=== PATIENT | female | born 1940 | race African-American/Black ===

== ENCOUNTER 2019-05-29 11:39 | Emergency (ER) | payer OTHER ==
[2019-05-29 11:46] VITALS: BP 153/63; PULSE 79; TEMP 98.2; BMI 25.7
--- NOTE | 2019-05-29 13:49 | PDOC ---
History of Present Illness - General Chief Complaint: Psychiatric Stated Complaint: DEPRESSION Time Seen by Provider: 05/29/19 11:56 History Source: Patient, Family Exam Limitations: No Limitations Past History - Past Medical History Allergies/Adverse Reactions: Allergies Allergy/AdvReac Type Severity Reaction Status Date / Time No Known Allergies Allergy Verified 05/29/19 11:46 Home Medications: Ambulatory Orders Aspirin [ASA -] 81 mg PO DAILY 05/29/19 Dorzolamide HCl [Trusopt 2%] 1 drop OP TID 05/29/19 Iron Ps Complex/B12/Folic Acid [Poly-Iron 150 Forte Capsule] 1 cap PO DAILY 10/12 Isosorbide Mononitrate 10 mg PO DAILY 05/29/19 Losartan Potassium 50 mg PO DAILY 05/29/19 Metoprolol Tartrate 25 mg PO DAILY 05/29/19 Nifedipine ER [Procardia XL -] 30 mg PO DAILY 05/29/19 Simvastatin 40 mg PO DAILY 05/29/19 Cardiac Disorders: Yes (3 stents) COPD: No Diabetes: Yes HTN: Yes - Surgical History Cardiac Surgery: Yes (3 stents) - Psycho Social/Smoking Cessation Hx Smoking History: Never smoked Information on smoking cessation initiated: No Hx Alcohol Use: No Drug/Substance Use Hx: No *Physical Exam - Vital Signs Last Vital Signs Temp Pulse Resp BP Pulse Ox 98.2 F 79 18 153/63 98 05/29/19 11:42 05/29/19 11:42 05/29/19 11:42 05/29/19 11:42 05/29/19 11:42 - Physical Exam General Appearance: No: Apparent Distress Respiratory/Chest: positive: Lungs Clear, Normal Breath Sounds. negative: Respiratory Distress Cardiovascular: positive: Regular Rhythm, Regular Rate, S1, S2. negative: Murmur Gastrointestinal/Abdominal: positive: Normal Bowel Sounds, Soft. negative: Tender, Distended, Guarding, Rebound Extremity: positive: Other (LLE slightly larger appearing than RLE, no pitting edema, no calf tenderness, 2+ DP and PT pulses B/L, normal color of extremities) Integumentary: positive: Normal Color. negative: Erythema, Mottled, Cold, Ecchymosis, Bruising Neurologic: positive: Fully Oriented, Alert, Normal Mood/Affect ED Treatment Course - RADIOLOGY Radiology Studies Ordered: Category Date Time Status DUPLEX VASCUL US-1 LEG [US] Stat Ultrasound 05/29/19 12:11 Completed Medical Decision Making - Medical Decision Making 78 y/o F hx of depression, CAD s/p PCI x 3 years, HTN, DM presents with having anxiety attacks x 3 weeks. Saw her PCP 3 weeks ago and was prescribed Paxil but states has not been taking full dose as scared of getting addicted to medication. Mentions she is anxious about her health and worried she will pass away from a serious illness (patient's family member last year from cancer and patient worried maybe she might get cancer also). Her PCP referred her to [facility] where she was given long list of psychiatrists whom she can follow-up with. She went to [place] last week but they were unable to see her as told there were no appointments available. Patient has been unable to find a psychiatrist. She came to ER today because she thought we had a [facility]. She also endorses having bilateral leg pain for 1-2 years. She has been referred to a vascular doctor and is pending to see one regarding this. Denies fevers, shortness breath, chest pain, abdominal pain , nausea, vomiting, diarrhea, urinary symptoms, numbness, tingling, weakness of the extremities, visual/gait changes, S/H ideation. LLE US negative for DVT No suspicion for acute arterial occlusion based on exam Patient otherwise appears well without S/H ideation Advised to find psychiatrist through her insurance stable for dc 05/29/19 13:44 Discharge - Discharge Information Problems reviewed: Yes Clinical Impression/Diagnosis: Anxiety Condition: Stable Disposition: HOME - Admission No - Additional Discharge Information Prescription Drug Monitoring Program (I-STOP) results: I-STOP not reviewed - Follow up/Referral Referrals: Tawana Diaz MD [Staff Physician] - 2 Days - Patient Discharge Instructions Patient Printed Discharge Instructions: DI for Anxiety -- Adult Additional Instructions: Thank you for choosing [facility]. It was a pleasure taking care of you. Please take the full dose of the Paxil as it was prescribed Please follow-up with psychiatrist - you may find one by going though your insurance You were also referred to Dr. Diaz Return to the Emergency Department if your symptoms worsen or persist, you have thoughts of hurting yourself or others or other concerning symptoms. - Post Discharge Activity
== END 2019-05-29 14:22 | disposition home or self-care (01) ==
LOC: JER 11:39
DX: F41.9 Anxiety disorder, unspecified (principal); E11.9 Type 2 diabetes mellitus without complications; I10 Essential (primary) hypertension; I25.10 Atherosclerotic heart disease of native coronary artery without angina pectoris
CPT/HCPCS: 93971-TC; 99283-25

== ENCOUNTER 2021-10-30 15:08 | Emergency (ER) | payer OTHER ==
[2021-10-30] MEDS ORDERED: DIPHTH,PERTUSS(ACELL),TET 0.5 ML DISP.SYRIN IM ONE ×2 (15:44→15:51)
[2021-10-30] MEDS ORDERED: ACETAMINOPHEN 325 MG TABLET (FP) PO ONE (15:44)
[2021-10-30 15:48] VITALS: BMI 24.3
[2021-10-30] MEDS ORDERED: ACETAMINOPHEN 325 MG TABLET (FP) ONE (15:50)
[2021-10-30 18:29] VITALS: BP 129/57; PULSE 84
[2021-10-30 20:37] VITALS: TEMP 97.8
== END 2021-10-30 21:37 | disposition home or self-care (01) ==
LOC: JER 15:08
PROC: 3E0234Z Introduction of Serum, Toxoid and Vaccine into Muscle, Percutaneous Approach (ICD-10-PCS; principal; 2021-10-30)
DX: S00.511A Abrasion of lip, initial encounter (principal); M25.561 Pain in right knee; S20.212A Contusion of left front wall of thorax, initial encounter; W01.0XXA Fall on same level from slipping, tripping and stumbling without subsequent striking against object, initial encounter
CPT/HCPCS: 70450-TC; 70486-TC; 71045-TC-FY; 72125-TC; 72170-TC-FY; 73502-TC-RT-FY; 73564-TC-RT-FY; 90471; 90715; 99285-25